=== PATIENT | female | born 1955 | race Caucasian/White ===

== ENCOUNTER 2020-09-02 10:18 | Inpatient (IN) | payer MEDICARE, MEDICAID ==
[~2020-09-02] VITALS: Ht 162.6 cm; Wt 60.5 kg
[~2020-09-02 10:18] MED LIST: ALPR0.254 PO; AMLO-489 PO; FOLI1TAB6 PO; FURO1TAB31 PO; GABA100C9 PO; HYDR-4833 PO; LISI40TA11 PO; METO25TA93 PO; PANT40TA2 PO; POTA10TA32 PO; SIMV-8 PO
[2020-09-02 10:50] LABS: Basophils # (auto) 0 10 ^3/uL (0-0.2); Basophils % (auto) 0.8 % (0.0-2.0); Eosinophils # (auto) 0.1 10 ^3/uL (0-0.8); Eosinophils % (auto) 1.5 % (0.0-7.0); Hematocrit 38.7 % (36.0-46.0); Hemoglobin 13.3 g/dL (12.2-16.2); Lymphocytes # (auto) 1.6 10 ^3/uL (0.4-5.4); Lymphocytes % (auto) 34.5 % (10.0-50.0); Mean Corpuscular Hemoglobin 32.1 pg (28.0-32.0); Mean Corpuscular Hgb Conc. 34.3 g/dL (32.0-36.0); Mean Corpuscular Volume 93.8 fL (80.0-100.0); Monocytes # (auto) 0.2 10 ^3/uL (0-1.3); Monocytes % (auto) 3.7 % (0.0-12.0); Neutrophils # (auto) 2.8 10 ^3/uL (1.6-8.6); Neutrophils % (auto) 59.5 % (37.0-80.0); Nucleated Red Blood Cells % 0.2 %; Red Blood Cells 4.12 10^6/uL (4.0-5.20); Red Cell Distribution Width 15.1 % (11.8-14.3); White Blood Cell 4.6 10^3/uL (4.4-10.8)
[2020-09-02 11:03] LABS: Albumin 2.8 g/dL (3.4-5.0); Anion Gap 10 (5-15); Blood Urea Nitrogen 7 mg/dL (7-18); Calcium 8.8 mg/dL (8.5-10.1); Carbon Dioxide 24 mmol/L (21-32); Chloride 108 mmol/L (98-107); Glucose 106 mg/dL (74-106); Magnesium 2.1 mg/dL (1.6-2.6); Sodium 142 mmol/L (136-145)
[2020-09-02 11:09] LABS: Alanine Aminotransferase 17 U/L (13-56); Alkaline Phosphatase 93 U/L (45-117); Aspartate Aminotransferase 37 U/L (15-37); BUN/Creatinine Ratio 4.4; Bilirubin, Total 0.6 mg/dL (0.2-1.0); GFR African American 41 mL/min; GFR Non-African American 34 mL/min; Total Protein 7.2 g/dL (6.4-8.2)
[2020-09-02 11:11] LABS: Potassium 2.9 mmol/L (3.5-5.1)
[2020-09-02] MEDS ORDERED: POTASSIUM CHL 20MEQ/100ML 100 ML IV ONE (11:15)
[2020-09-02] MEDS ORDERED: POTASSIUM CHLORIDE 20 MEQ, LIDOCAINE 1% (LOCAL ANESTH.) 2 ML in SODIUM CHL 0.9% 100 ML IV ONE (11:30)
[2020-09-02 13:22] LABS: Urine Bacteria MOD /hpf (None Seen); Urine Blood 1+ /uL (Negative); Urine Hyaline Cast FEW /lpf (0 - 2); Urine Specific Gravity 1.013 (1.001-1.035); Urine WBC 8 /hpf (0 - 5)
[2020-09-02] MEDS ORDERED: ACETAMINOPHEN 500 MG TAB PO PRN (15:00)
[2020-09-02] MEDS ORDERED: NITROGLYCERIN 0.4 MG SL TAB SL PRN (15:00)
[2020-09-02] MEDS: SODIUM CHLORIDE 0.9% 1,000 ML IV SCH (15:00)
[2020-09-02] MEDS ORDERED: DOCUSATE CALCIUM 240 MG CAP PO PRN (15:00)
[2020-09-02] MEDS ORDERED: POTASSIUM EFFERVESENT TAB 25 MEQ PO ONE (15:00)
[2020-09-02] MEDS ORDERED: hydrALAZINE HCL 20 MG/ML VL IV PRN (15:00)
[2020-09-02] MEDS ORDERED: ONDANSETRON HCL 4 MG/2 ML VIAL IV PRN (15:00)
[2020-09-02] MEDS ORDERED: MORPHINE SULFATE INJECTION 2 MG/ML SYRG IV PRN (15:00)
[2020-09-02 18:19] VITALS: BP 124/54
[2020-09-02] MEDS: KETOROLAC TROMETH 30 MG/ML 1ML VIAL IM PRN (19:17)
[2020-09-02] MEDS: ATORVASTATIN 20 MG TAB PO SCH (21:31)
[2020-09-02] MEDS: LORazepam 0.5 MG TAB PO PRN (21:48)
[2020-09-02] MEDS: FAMOTIDINE 20 MG TAB PO SCH (22:00)
[2020-09-02 22:28] LABS: Potassium 3.5 mmol/L (3.5-5.1)
[2020-09-03 00:25] VITALS: BP 109/47
[2020-09-03 07:06] LABS: INR 1.14 (0.9-1.15)
[2020-09-03 07:12] LABS: Basophils # (auto) 0 10 ^3/uL (0-0.2); Basophils % (auto) 0.7 % (0.0-2.0); Eosinophils # (auto) 0.1 10 ^3/uL (0-0.8); Eosinophils % (auto) 2.4 % (0.0-7.0); Hematocrit 27.5 % (36.0-46.0); Hemoglobin 9.5 g/dL (12.2-16.2); Lymphocytes # (auto) 1.7 10 ^3/uL (0.4-5.4); Lymphocytes % (auto) 53.8 % (10.0-50.0); Mean Corpuscular Hemoglobin 32.9 pg (28.0-32.0); Mean Corpuscular Hgb Conc. 34.7 g/dL (32.0-36.0); Mean Corpuscular Volume 94.7 fL (80.0-100.0); Monocytes # (auto) 0.2 10 ^3/uL (0-1.3); Neutrophils # (auto) 1.2 10 ^3/uL (1.6-8.6); Neutrophils % (auto) 37.1 % (37.0-80.0); Nucleated Red Blood Cells % 0.1 %; Red Cell Distribution Width 15.1 % (11.8-14.3); White Blood Cell 3.2 10^3/uL (4.4-10.8)
[2020-09-03 07:20] LABS: Calcium 7.8 mg/dL (8.5-10.1); Potassium 3.2 mmol/L (3.5-5.1)
[2020-09-03 07:27] LABS: BUN/Creatinine Ratio 5.6; Bilirubin, Total 0.5 mg/dL (0.2-1.0); Total Protein 5.1 g/dL (6.4-8.2)
[2020-09-03 08:00] VITALS: BP 104/58
[2020-09-03] MEDS: FOLIC ACID 1 MG TAB PO SCH (09:32)
[2020-09-03] MEDS: cefTRIAXone 1GM/50ML D5W 50 ML IV SCH (09:32)
[2020-09-03] MEDS: amLODIPine BESYLATE 5 MG TAB PO SCH (09:34)
[2020-09-03] MEDS: METOPROLOL SUCCINATE XL 50 MG TAB PO SCH (09:34)
[2020-09-03] MEDS: LISINOPRIL 20 MG TAB PO SCH (09:35)
[2020-09-03] MEDS: PANTOPRAZOLE 40 MG TAB PO SCH (09:35)
[2020-09-03] MEDS ORDERED: ENOXAPARIN SOD 40 MG/0.4 ML SYRINGE SC SCH (10:00)
[2020-09-03] MEDS: KETOROLAC TROMETH 30 MG/ML 1ML VIAL IM PRN (11:15)
[2020-09-03] MEDS: SODIUM CHLORIDE 0.9% 1,000 ML IV SCH ×2 (11:24→21:37)
[2020-09-03] MEDS ORDERED: POTASSIUM CHLORIDE 60 MEQ, LIDOCAINE 1% (LOCAL ANESTH.) 6 ML in SODIUM CHL 0.9% 500 ML IV ONE (13:15)
[2020-09-03] MEDS: ZINC SULFATE 220mg CAP or TAB PO SCH (13:25)
[2020-09-03] MEDS: DexAMETHasone SOD PHOS 10MG/1ML VIAL INJ IV SCH (13:25)
[2020-09-03 13:56] LABS: Basophils # (auto) 0 10 ^3/uL (0-0.2); Basophils % (auto) 1.1 % (0.0-2.0); Eosinophils # (auto) 0.1 10 ^3/uL (0-0.8); Eosinophils % (auto) 2.2 % (0.0-7.0); Hematocrit 31.6 % (36.0-46.0); Hemoglobin 10.9 g/dL (12.2-16.2); Lymphocytes # (auto) 1.3 10 ^3/uL (0.4-5.4); Lymphocytes % (auto) 37.6 % (10.0-50.0); Mean Corpuscular Hemoglobin 32.6 pg (28.0-32.0); Mean Corpuscular Hgb Conc. 34.6 g/dL (32.0-36.0); Mean Corpuscular Volume 94.3 fL (80.0-100.0); Monocytes # (auto) 0.2 10 ^3/uL (0-1.3); Monocytes % (auto) 4.9 % (0.0-12.0); Neutrophils # (auto) 1.8 10 ^3/uL (1.6-8.6); Neutrophils % (auto) 54.2 % (37.0-80.0); Nucleated Red Blood Cells % 0.1 %; Red Blood Cells 3.35 10^6/uL (4.0-5.20); White Blood Cell 3.4 10^3/uL (4.4-10.8)
[2020-09-03 14:15] LABS: Albumin 2.1 g/dL (3.4-5.0); Calcium 7.8 mg/dL (8.5-10.1); Magnesium 1.8 mg/dL (1.6-2.6); Potassium 3.3 mmol/L (3.5-5.1)
[2020-09-03 14:19] LABS: BUN/Creatinine Ratio 4.3; Bilirubin, Total 0.4 mg/dL (0.2-1.0); CRP High Sensitivity 0.4 mg/dL (< 0.3); Total Protein 5.4 g/dL (6.4-8.2)
[2020-09-03 15:34] VITALS: BP 118/58
[2020-09-03] MEDS: FAMOTIDINE 20 MG TAB PO SCH (21:36)
[2020-09-03] MEDS: ATORVASTATIN 20 MG TAB PO SCH (21:36)
[2020-09-03] MEDS: ENOXAPARIN SOD 40 MG/0.4 ML SYRINGE SC SCH (21:37)
[2020-09-03] MEDS: DOXYCYCLINE 100 MG TAB/CAP PO SCH (21:37)
[2020-09-03] MEDS: LORazepam 0.5 MG TAB PO PRN (21:59)
[2020-09-03] MEDS: BUDESONIDE (INHALATION) 180 MCG IH IN SCH (22:00)
[2020-09-03] MEDS: traMADol HCL 50 MG TAB PO PRN (22:00)
[2020-09-03] MEDS: ALBUTEROL SULF HFA 90MCG INH 200DOSE IN PRN (22:37)
[2020-09-03 23:59] VITALS: BP 103/47
[2020-09-04 06:31] LABS: Basophils # (auto) 0 10 ^3/uL (0-0.2); Basophils % (auto) 0.8 % (0.0-2.0); Eosinophils # (auto) 0 10 ^3/uL (0-0.8); Hematocrit 28.9 % (36.0-46.0); Hemoglobin 10.1 g/dL (12.2-16.2); Lymphocytes # (auto) 0.4 10 ^3/uL (0.4-5.4); Lymphocytes % (auto) 20.9 % (10.0-50.0); Mean Corpuscular Hemoglobin 33.2 pg (28.0-32.0); Mean Corpuscular Hgb Conc. 34.9 g/dL (32.0-36.0); Mean Corpuscular Volume 95.2 fL (80.0-100.0); Monocytes # (auto) 0 10 ^3/uL (0-1.3); Monocytes % (auto) 1.7 % (0.0-12.0); Neutrophils # (auto) 1.6 10 ^3/uL (1.6-8.6); Neutrophils % (auto) 76.6 % (37.0-80.0); Red Blood Cells 3.03 10^6/uL (4.0-5.20); Red Cell Distribution Width 14.9 % (11.8-14.3); White Blood Cell 2.1 10^3/uL (4.4-10.8)
[2020-09-04] MEDS: BUDESONIDE (INHALATION) 180 MCG IH IN SCH ×2 (06:52→21:31)
[2020-09-04 06:55] LABS: Albumin 2.4 g/dL (3.4-5.0); Calcium 8.4 mg/dL (8.5-10.1); Potassium 4.5 mmol/L (3.5-5.1)
[2020-09-04 07:00] LABS: Bilirubin, Total 0.5 mg/dL (0.2-1.0); Total Protein 5.7 g/dL (6.4-8.2)
[2020-09-04 07:34] VITALS: BP 98/57
[2020-09-04] MEDS: cefTRIAXone 1GM/50ML D5W 50 ML IV SCH (08:44)
[2020-09-04] MEDS: ENOXAPARIN SOD 40 MG/0.4 ML SYRINGE SC SCH ×2 (08:46→22:36)
[2020-09-04] MEDS: ZINC SULFATE 220mg CAP or TAB PO SCH (08:46)
[2020-09-04] MEDS: PANTOPRAZOLE 40 MG TAB PO SCH (08:46)
[2020-09-04] MEDS: FOLIC ACID 1 MG TAB PO SCH (08:46)
[2020-09-04] MEDS: amLODIPine BESYLATE 5 MG TAB PO SCH (08:47)
[2020-09-04] MEDS: DexAMETHasone SOD PHOS 10MG/1ML VIAL INJ IV SCH (08:47)
[2020-09-04] MEDS: DOXYCYCLINE 100 MG TAB/CAP PO SCH ×2 (08:47→22:36)
[2020-09-04] MEDS: METOPROLOL SUCCINATE XL 50 MG TAB PO SCH (08:48)
[2020-09-04] MEDS: LISINOPRIL 20 MG TAB PO SCH (08:48)
[2020-09-04 16:00] VITALS: BP 115/67
[2020-09-04] MEDS: traMADol HCL 50 MG TAB PO PRN (20:49)
[2020-09-04] MEDS: ALBUTEROL SULF HFA 90MCG INH 200DOSE IN PRN (21:31)
[2020-09-04] MEDS: FAMOTIDINE 20 MG TAB PO SCH (22:36)
[2020-09-04] MEDS: ATORVASTATIN 20 MG TAB PO SCH (22:36)
[2020-09-04] MEDS: LORazepam 0.5 MG TAB PO PRN (22:37)
[2020-09-05] VITALS: BP 104/53
[2020-09-05] MEDS: SODIUM CHLORIDE 0.9% 1,000 ML IV SCH ×3 (03:15→20:30)
[2020-09-05 06:42] LABS: Basophils # (auto) 0 10 ^3/uL (0-0.2); Basophils % (auto) 0.1 % (0.0-2.0); Eosinophils # (auto) 0 10 ^3/uL (0-0.8); Hematocrit 27.6 % (36.0-46.0); Hemoglobin 9.6 g/dL (12.2-16.2); Lymphocytes # (auto) 0.7 10 ^3/uL (0.4-5.4); Lymphocytes % (auto) 13.3 % (10.0-50.0); Mean Corpuscular Hgb Conc. 34.9 g/dL (32.0-36.0); Mean Corpuscular Volume 94.5 fL (80.0-100.0); Monocytes # (auto) 0.2 10 ^3/uL (0-1.3); Monocytes % (auto) 3.8 % (0.0-12.0); Neutrophils # (auto) 4.2 10 ^3/uL (1.6-8.6); Neutrophils % (auto) 82.8 % (37.0-80.0); Nucleated Red Blood Cells % 0.1 %; Red Blood Cells 2.92 10^6/uL (4.0-5.20); Red Cell Distribution Width 14.9 % (11.8-14.3)
[2020-09-05 08:04] VITALS: BP 107/44
[2020-09-05] MEDS: DOXYCYCLINE 100 MG TAB/CAP PO SCH ×2 (10:00→21:28)
[2020-09-05] MEDS: BUDESONIDE (INHALATION) 180 MCG IH IN SCH ×2 (10:00→21:26)
[2020-09-05] MEDS: DexAMETHasone SOD PHOS 10MG/1ML VIAL INJ IV SCH (10:00)
[2020-09-05] MEDS: ENOXAPARIN SOD 40 MG/0.4 ML SYRINGE SC SCH ×2 (10:00→21:28)
[2020-09-05] MEDS: amLODIPine BESYLATE 5 MG TAB PO SCH (10:00)
[2020-09-05] MEDS: FOLIC ACID 1 MG TAB PO SCH (10:00)
[2020-09-05] MEDS: METOPROLOL SUCCINATE XL 50 MG TAB PO SCH (10:00)
[2020-09-05] MEDS: cefTRIAXone 1GM/50ML D5W 50 ML IV SCH (10:00)
[2020-09-05] MEDS: ZINC SULFATE 220mg CAP or TAB PO SCH (10:00)
[2020-09-05] MEDS: LISINOPRIL 20 MG TAB PO SCH (10:00)
[2020-09-05] MEDS: PANTOPRAZOLE 40 MG TAB PO SCH (10:00)
[2020-09-05 16:04] VITALS: BP 110/53
[2020-09-05] MEDS: KETOROLAC TROMETH 30 MG/ML 1ML VIAL IM PRN (18:00)
[2020-09-05] MEDS: ATORVASTATIN 20 MG TAB PO SCH (21:27)
[2020-09-05] MEDS: FAMOTIDINE 20 MG TAB PO SCH (21:28)
[2020-09-05] MEDS: LORazepam 0.5 MG TAB PO PRN (21:28)
[2020-09-06] VITALS: BP 106/58
[2020-09-06] MEDS: SODIUM CHLORIDE 0.9% 1,000 ML IV SCH ×3 (04:52→20:42)
[2020-09-06] MEDS: BUDESONIDE (INHALATION) 180 MCG IH IN SCH ×2 (06:10→19:33)
[2020-09-06] MEDS: ALBUTEROL SULF HFA 90MCG INH 200DOSE IN PRN ×3 (06:10→19:33)
[2020-09-06 07:18] LABS: Basophils # (auto) 0 10 ^3/uL (0-0.2); Basophils % (auto) 0.3 % (0.0-2.0); Eosinophils # (auto) 0 10 ^3/uL (0-0.8); Eosinophils % (auto) 0.1 % (0.0-7.0); Hematocrit 29.6 % (36.0-46.0); Hemoglobin 10.1 g/dL (12.2-16.2); Lymphocytes # (auto) 0.5 10 ^3/uL (0.4-5.4); Lymphocytes % (auto) 13.5 % (10.0-50.0); Mean Corpuscular Hemoglobin 32.7 pg (28.0-32.0); Mean Corpuscular Hgb Conc. 34.1 g/dL (32.0-36.0); Monocytes # (auto) 0.2 10 ^3/uL (0-1.3); Monocytes % (auto) 4.3 % (0.0-12.0); Neutrophils # (auto) 3.2 10 ^3/uL (1.6-8.6); Neutrophils % (auto) 81.8 % (37.0-80.0); Red Blood Cells 3.09 10^6/uL (4.0-5.20); Red Cell Distribution Width 15.2 % (11.8-14.3); White Blood Cell 3.9 10^3/uL (4.4-10.8)
[2020-09-06 08:00] VITALS: BP 116/50
[2020-09-06] MEDS: cefTRIAXone 1GM/50ML D5W 50 ML IV SCH (09:24)
[2020-09-06] MEDS: FOLIC ACID 1 MG TAB PO SCH (10:45)
[2020-09-06] MEDS: DexAMETHasone SOD PHOS 10MG/1ML VIAL INJ IV SCH (10:45)
[2020-09-06] MEDS: ZINC SULFATE 220mg CAP or TAB PO SCH (10:46)
[2020-09-06] MEDS: ENOXAPARIN SOD 40 MG/0.4 ML SYRINGE SC SCH ×2 (10:46→21:01)
[2020-09-06] MEDS: amLODIPine BESYLATE 5 MG TAB PO SCH (10:46)
[2020-09-06] MEDS: DOXYCYCLINE 100 MG TAB/CAP PO SCH ×2 (10:46→21:01)
[2020-09-06] MEDS: PANTOPRAZOLE 40 MG TAB PO SCH (10:46)
[2020-09-06] MEDS: METOPROLOL SUCCINATE XL 50 MG TAB PO SCH (10:47)
[2020-09-06] MEDS: LISINOPRIL 20 MG TAB PO SCH (10:47)
[2020-09-06 16:01] VITALS: BP 111/52
[2020-09-06] MEDS: traMADol HCL 50 MG TAB PO PRN (18:32)
[2020-09-06] MEDS: ATORVASTATIN 20 MG TAB PO SCH (21:00)
[2020-09-06] MEDS: FAMOTIDINE 20 MG TAB PO SCH (21:01)
[2020-09-07] VITALS: BP 108/64
[2020-09-07 06:07] LABS: Basophils # (auto) 0 10 ^3/uL (0-0.2); Basophils % (auto) 0.5 % (0.0-2.0); Eosinophils # (auto) 0 10 ^3/uL (0-0.8); Hematocrit 27.9 % (36.0-46.0); Hemoglobin 9.6 g/dL (12.2-16.2); Lymphocytes # (auto) 0.5 10 ^3/uL (0.4-5.4); Mean Corpuscular Hemoglobin 32.5 pg (28.0-32.0); Mean Corpuscular Hgb Conc. 34.6 g/dL (32.0-36.0); Monocytes # (auto) 0.2 10 ^3/uL (0-1.3); Monocytes % (auto) 6.4 % (0.0-12.0); Neutrophils # (auto) 2.1 10 ^3/uL (1.6-8.6); Neutrophils % (auto) 74.1 % (37.0-80.0); Red Blood Cells 2.97 10^6/uL (4.0-5.20); Red Cell Distribution Width 15.4 % (11.8-14.3); White Blood Cell 2.8 10^3/uL (4.4-10.8)
[2020-09-07] MEDS: SODIUM CHLORIDE 0.9% 1,000 ML IV SCH ×3 (06:09→20:30)
[2020-09-07] MEDS: ALBUTEROL SULF HFA 90MCG INH 200DOSE IN PRN ×3 (06:12→19:34)
[2020-09-07] MEDS: BUDESONIDE (INHALATION) 180 MCG IH IN SCH ×2 (06:12→19:34)
[2020-09-07 06:36] LABS: Albumin 2.3 g/dL (3.4-5.0); Calcium 7.9 mg/dL (8.5-10.1); Potassium 3.6 mmol/L (3.5-5.1)
[2020-09-07 06:42] LABS: BUN/Creatinine Ratio 8.6; Bilirubin, Total 0.4 mg/dL (0.2-1.0); Total Protein 5.5 g/dL (6.4-8.2)
[2020-09-07 08:00] VITALS: BP 111/61
[2020-09-07 08:30] VITALS: BP 111/61
[2020-09-07] MEDS: cefTRIAXone 1GM/50ML D5W 50 ML IV SCH (09:23)
[2020-09-07] MEDS: ENOXAPARIN SOD 40 MG/0.4 ML SYRINGE SC SCH ×2 (10:00→20:28)
[2020-09-07] MEDS: FOLIC ACID 1 MG TAB PO SCH (10:23)
[2020-09-07] MEDS: ZINC SULFATE 220mg CAP or TAB PO SCH (10:23)
[2020-09-07] MEDS: DexAMETHasone SOD PHOS 10MG/1ML VIAL INJ IV SCH (10:23)
[2020-09-07] MEDS: PANTOPRAZOLE 40 MG TAB PO SCH (10:24)
[2020-09-07] MEDS: DOXYCYCLINE 100 MG TAB/CAP PO SCH ×2 (10:24→20:28)
[2020-09-07] MEDS: amLODIPine BESYLATE 5 MG TAB PO SCH (10:24)
[2020-09-07] MEDS: METOPROLOL SUCCINATE XL 50 MG TAB PO SCH (10:24)
[2020-09-07] MEDS: LISINOPRIL 20 MG TAB PO SCH (10:25)
[2020-09-07 12:30] VITALS: BP 113/60
[2020-09-07] MEDS: traMADol HCL 50 MG TAB PO PRN ×2 (13:00→20:28)
[2020-09-07 16:00] VITALS: BP 112/43
[2020-09-07] MEDS: FAMOTIDINE 20 MG TAB PO SCH (20:28)
[2020-09-07] MEDS: ATORVASTATIN 20 MG TAB PO SCH (20:28)
[2020-09-07] MEDS: LORazepam 0.5 MG TAB PO PRN (21:05)
[2020-09-07 22:00] VITALS: BP 120/60
[2020-09-08] MEDS: SODIUM CHLORIDE 0.9% 1,000 ML IV SCH ×3 (04:30→20:30)
[2020-09-08 05:00] VITALS: BP 120/56
[2020-09-08] MEDS: ALBUTEROL SULF HFA 90MCG INH 200DOSE IN PRN ×2 (07:03→22:19)
[2020-09-08] MEDS: BUDESONIDE (INHALATION) 180 MCG IH IN SCH ×2 (07:03→22:19)
[2020-09-08 09:00] VITALS: BP 117/46
[2020-09-08] MEDS: FOLIC ACID 1 MG TAB PO SCH (09:34)
[2020-09-08] MEDS: cefTRIAXone 1GM/50ML D5W 50 ML IV SCH (09:34)
[2020-09-08] MEDS: DexAMETHasone SOD PHOS 10MG/1ML VIAL INJ IV SCH (09:34)
[2020-09-08] MEDS: PANTOPRAZOLE 40 MG TAB PO SCH (09:35)
[2020-09-08] MEDS: ZINC SULFATE 220mg CAP or TAB PO SCH (09:35)
[2020-09-08] MEDS: amLODIPine BESYLATE 5 MG TAB PO SCH (09:35)
[2020-09-08] MEDS: DOXYCYCLINE 100 MG TAB/CAP PO SCH (09:35)
[2020-09-08] MEDS: ENOXAPARIN SOD 40 MG/0.4 ML SYRINGE SC SCH ×2 (09:35→22:32)
[2020-09-08] MEDS: LISINOPRIL 20 MG TAB PO SCH (09:36)
[2020-09-08] MEDS: METOPROLOL SUCCINATE XL 50 MG TAB PO SCH (09:39)
[2020-09-08 11:24] VITALS: BP 117/46
[2020-09-08 13:00] VITALS: BP 112/57
[2020-09-08 16:51] VITALS: BP 125/52
[2020-09-08] MEDS: traMADol HCL 50 MG TAB PO PRN (17:36)
[2020-09-08 20:00] VITALS: BP 107/48
[2020-09-08] MEDS: ATORVASTATIN 20 MG TAB PO SCH (22:32)
[2020-09-08] MEDS: FAMOTIDINE 20 MG TAB PO SCH (22:32)
== END 2020-09-08 23:02 | disposition home or self-care (01) | DRG 640 ==
LOC: ER 10:18 → TELE 10:19 → TELE-WESTW 18:14
PROVIDERS: ADMIT Family Medicine; ATTEND Family Medicine
DX: E87.6 Hypokalemia (principal); U07.1 COVID-19; N17.9 Acute kidney failure, unspecified; N39.0 Urinary tract infection, site not specified; E86.0 Dehydration; I10 Essential (primary) hypertension; T40.2X5A Adverse effect of other opioids, initial encounter; Z96.642 Presence of left artificial hip joint; E78.5 Hyperlipidemia, unspecified; E78.00 Pure hypercholesterolemia, unspecified; Z90.49 Acquired absence of other specified parts of digestive tract; Z88.8 Allergy status to other drugs, medicaments and biological substances; Z92.89 Personal history of other medical treatment; Z88.5 Allergy status to narcotic agent
CPT/HCPCS: 36415; 70450; 71045; 80051; 80053; 80061; 81001; 82306; 82728; 83036; 83605; 83615; 83735; 83880; 84443; 84484; 85025; 85379; 85610; 86141; 87086; 87426; 93005; 94640; 96365; 96366; 97116; 97530; G0378; J0696; J1100; J1885; J2001